=== PATIENT | male | born 2005 | race Hispanic/Latino ===

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

== ENCOUNTER 2023-02-21 19:52 | Emergency (ER) | payer OTHER ==
[~2023-02-21] VITALS: Ht 180.3 cm; Wt 72.9 kg
[~2023-02-21 19:52] MED LIST: OMEP40CA4 PO; SUCR1SS PO
[2023-02-21 20:57] LABS: BASO % 0.2 % (0.0-1.0); EOS % 0.3 % (0.0-3.0); HEMATOCRIT 42.8 % (42.0-52.0); LYMPH # 3.3 10^3/uL (1.5-5.0); LYMPH % 36.2 % (24.0-44.0); MEAN CORPUSCULAR HEMOGLOBIN 28.8 pg (27.0-33.0); MEAN CORPUSCULAR VOLUME 82.1 fl (80.0-96.0); MONO # 0.7 10^3/uL (0.0-0.8); MONO % 7.5 % (2.0-8.0); NEUTROPHILS # 5.1 10^3/uL (1.5-8.5); NEUTROPHILS % 55.5 % (36.0-66.0); PLATELET COUNT, AUTOMATED 310 10^3/uL (150-450); RED BLOOD COUNT 5.21 10^6/uL (4.30-6.10); WHITE BLOOD COUNT 9.2 10^3/uL (4.0-10.0)
[2023-02-21 21:17] LABS: BLOOD UREA NITROGEN 18 MG/DL (9-23); CALCIUM LEVEL 9.7 MG/DL (8.5-10.1); CARBON DIOXIDE LEVEL 24 MMOL/L (20-31); CHLORIDE LEVEL 107 MMOL/L (98-107); CREATININE FOR GFR 1.09 MG/DL (0.70-1.30); GLUCOSE, FASTING 104 MG/DL (60-100); POTASSIUM SERUM 3.5 MMOL/L (3.5-5.1); SODIUM LEVEL 141 MMOL/L (136-145)
[2023-02-21 21:19] LABS: THYROID STIMULATING HORMONE 2.039 uIU/ML (0.48-4.17)
[2023-02-21 21:32] LABS: INR 1.05; PROTHROMBIN TIME 13.4 SECONDS (12.5-14.5)
[2023-02-21 21:33] LABS: PARTIAL THROMBOPLASTIN TIME 31.8 SECONDS (24.8-34.2)
[2023-02-21 21:51] LABS: MB/CK RELATIVE INDEX 0.17 (< OR =4)
[2023-02-21] MEDS ORDERED: NS 1,000 ML IV ONE (22:05)
[2023-02-21] MEDS ORDERED: ISOVUE-370 76% 100ML VIAL As Ordered ONE (22:18)
[2023-02-21 23:53] VITALS: BP 114/72; TEMP 98.4; O2SAT 100
== END 2023-02-22 00:10 | disposition home or self-care (01) ==
LOC: M ED 19:52
DX: R55 Syncope and collapse (principal); M62.838 Other muscle spasm; R74.8 Abnormal levels of other serum enzymes; R11.2 Nausea with vomiting, unspecified
CPT/HCPCS: 70450; 71046; 71275; 80048; 82553; 84443; 84484; 85025; 85610; 85730; 86850; 86900; 86901; 93005; 93041; 94760; 96360; 99285; Q9967

== ENCOUNTER 2023-04-12 14:14 | Emergency (ER) | payer OTHER ==
[~2023-04-12] VITALS: Ht 177.8 cm; Wt 74.7 kg
[2023-04-12 16:57] LABS: RSV AMPLIFICATION NEGATIVE (NEGATIVE)
[2023-04-12 17:21] LABS: BASO % 0.3 % (0.0-1.0); EOS % 0.5 % (0.0-3.0); HEMOGLOBIN 13.4 g/dl (13.5-17.5); LYMPH # 2.7 10^3/uL (1.5-5.0); LYMPH % 33.9 % (24.0-44.0); MEAN CORPUSCULAR HEMOGLOBIN 29.6 pg (27.0-33.0); MEAN CORPUSCULAR HGB CONC 34.4 g/dl (32.0-36.5); MEAN CORPUSCULAR VOLUME 86.3 fl (80.0-96.0); MONO # 0.6 10^3/uL (0.0-0.8); MONO % 7.4 % (2.0-8.0); NEUTROPHILS # 4.6 10^3/uL (1.5-8.5); NEUTROPHILS % 57.8 % (36.0-66.0); PLATELET COUNT, AUTOMATED 256 10^3/uL (150-450); RED BLOOD COUNT 4.52 10^6/uL (4.30-6.10); WHITE BLOOD COUNT 7.9 10^3/uL (4.0-10.0)
[2023-04-12] MEDS: NS 1,000 ML IV ONE (17:22)
[2023-04-12] MEDS: ACETAMINOPHEN 325 MG TAB PO ONE (17:22)
[2023-04-12 17:48] LABS: ETHYL ALCOHOL (ETHANOL) < 0.003 % (0.000-0.010)
[2023-04-12 17:49] LABS: CPK CREATINE PHOSPHOKINASE 517 U/L (46-171)
[2023-04-12 17:50] LABS: ALBUMIN 3.7 G/DL (3.2-5.2); ALKALINE PHOSPHATASE 58 U/L (46-116); ALT/SGPT 16 U/L (7.0-40); AST/SGOT 20 U/L (<34); BILIRUBIN,DIRECT 0.2 MG/DL (<0.4); BILIRUBIN,TOTAL 0.4 MG/DL (0.3-1.2); BLOOD UREA NITROGEN 18 MG/DL (9-23); CALCIUM LEVEL 8.7 MG/DL (8.5-10.1); CARBON DIOXIDE LEVEL 29 MMOL/L (20-31); CHLORIDE LEVEL 106 MMOL/L (98-107); CK-MB VALUE MASS 1.3 NG/ML (<3.6); CREATININE FOR GFR 1.24 MG/DL (0.70-1.30); GLUCOSE, FASTING 95 MG/DL (60-100); MB/CK RELATIVE INDEX 0.25 (< OR =4); POTASSIUM SERUM 3.6 MMOL/L (3.5-5.1); SALICYLATE LEVEL < 3.0 MG/DL (<30); SODIUM LEVEL 140 MMOL/L (136-145)
[2023-04-12 17:53] LABS: THYROID STIMULATING HORMONE 0.362 uIU/ML (0.48-4.17)
[2023-04-12 17:59] LABS: AMPHETAMINES LEVEL URINE NEGATIVE (NEGATIVE)
[2023-04-12 18:00] LABS: BARBITURATES URINE NEGATIVE (NEGATIVE); BENZODIAZEPINES URINE NEGATIVE (NEGATIVE); COCAINE METABOLITE URINE NEGATIVE (NEGATIVE); METHADONE URINE NEGATIVE (NEGATIVE); OPIATES URINE NEGATIVE (NEGATIVE); PHENCYCLIDINE URINE NEGATIVE (NEGATIVE)
[2023-04-12 18:11] LABS: CANNABINOIDS URINE POSITIVE (NEGATIVE)
[2023-04-12 20:05] LABS: FREE T4 0.89 NG/DL (0.83-1.43)
[2023-04-12 20:41] VITALS: BP 102/55; TEMP 97.8; O2SAT 99
== END 2023-04-12 20:47 | disposition home or self-care (01) ==
LOC: M ED 14:14
DX: R94.6 Abnormal results of thyroid function studies (principal); E86.0 Dehydration; D64.9 Anemia, unspecified

== ENCOUNTER 2023-09-25 09:40 | Emergency (ER) | payer OTHER ==
[~2023-09-25] VITALS: Ht 177.8 cm; Wt 73.5 kg
[2023-09-25 09:41] VITALS: BP 134/85; TEMP 97; O2SAT 100
[2023-09-25] MEDS ORDERED: OMEP10CASR PO (14:31)
[2023-09-25] MEDS ORDERED: ONDA-282 PO (14:38)
== END 2023-09-25 14:43 | disposition home or self-care (01) ==
LOC: M ED 09:40
DX: K22.4 Dyskinesia of esophagus (principal); I45.19 Other right bundle-branch block; Z79.83 Long term (current) use of bisphosphonates; Z79.899 Other long term (current) drug therapy

== ENCOUNTER 2024-05-11 09:11 | Emergency (ER) | payer OTHER ==
[~2024-05-11] VITALS: Ht 177.8 cm; Wt 77.0 kg
[~2024-05-11 09:11] MED LIST changes: +OMEP10CASR PO; +ONDA-282 PO
[2024-05-11 09:33] VITALS: BP 124/58; TEMP 97.5; O2SAT 99
[2024-05-11] MEDS ORDERED: IBUP200T46 PO (09:39)
== END 2024-05-11 11:39 | disposition left against medical advice (07) ==
LOC: M ED 09:11
DX: Z53.21 Procedure and treatment not carried out due to patient leaving prior to being seen by health care provider (principal)